=== PATIENT | male | born 1950 | race Caucasian/White ===

== ENCOUNTER 2018-12-10 09:00 | Outpatient (RCR) | payer MEDICARE, OTHER | END 2018-12-10 10:42 | disposition home or self-care (01) | LOC: MKS.ESL.PT 09:00 | DX: M25.511 Pain in right shoulder (principal) ==

== ENCOUNTER → 2019-10-06 | Outpatient (CLI) | payer MEDICARE, OTHER | LOC: COL.RAD 13:54 | DX: Z01.812 Encounter for preprocedural laboratory examination (principal); Z98.1 Arthrodesis status; M48.061 Spinal stenosis, lumbar region without neurogenic claudication; M51.16 Intervertebral disc disorders with radiculopathy, lumbar region; M43.16 Spondylolisthesis, lumbar region | CPT/HCPCS: A9585 ==

== ENCOUNTER → 2020-02-02 | Outpatient (CLI) | payer MEDICARE, OTHER | LOC: MHCPAIN 12:32 | DX: M47.817 Spondylosis without myelopathy or radiculopathy, lumbosacral region (principal); M54.5 Low back pain; M53.3 Sacrococcygeal disorders, not elsewhere classified; G89.29 Other chronic pain | CPT/HCPCS: G0463 ==

== ENCOUNTER → 2020-02-17 | Outpatient (CLI) | payer MEDICARE, OTHER | LOC: MHCPAIN 13:37 | DX: M47.817 Spondylosis without myelopathy or radiculopathy, lumbosacral region (principal); M53.3 Sacrococcygeal disorders, not elsewhere classified; M54.5 Low back pain | CPT/HCPCS: J1100; Q9967 ==

== ENCOUNTER → 2020-03-01 | Outpatient (CLI) | payer MEDICARE, OTHER | LOC: MHCPAIN 12:21 | DX: M47.817 Spondylosis without myelopathy or radiculopathy, lumbosacral region (principal); M54.5 Low back pain; M53.3 Sacrococcygeal disorders, not elsewhere classified; M54.16 Radiculopathy, lumbar region; G89.29 Other chronic pain | CPT/HCPCS: G0463 ==

== ENCOUNTER → 2020-08-08 | Outpatient (CLI) | payer MEDICARE, OTHER | LOC: COL.RAD 12:57 | DX: I67.82 Cerebral ischemia (principal); I34.0 Nonrheumatic mitral (valve) insufficiency; Z18.10 Retained metal fragments, unspecified ==

== ENCOUNTER 2021-01-10 15:23 | Emergency (ER) | payer MEDICARE, OTHER ==
[~2021-01-10] VITALS: Ht 175.3 cm; Wt 75.0 kg
[2021-01-10 15:34] VITALS: BP 143/84; TEMP 98.1
[2021-01-10 17:49] VITALS: PULSE 60
== END 2021-01-10 17:50 | disposition home or self-care (01) ==
LOC: COL.ER 15:23
DX: S01.01XA Laceration without foreign body of scalp, initial encounter (principal); W20.8XXA Other cause of strike by thrown, projected or falling object, initial encounter

== ENCOUNTER → 2021-01-18 | Outpatient (CLI) | payer MEDICARE, OTHER ==
[2021-01-18 09:26] VITALS: BP 134/72; PULSE 68; TEMP 98.2
== END ==
LOC: COL.ER 09:22
DX: Z48.02 Encounter for removal of sutures (principal)

== ENCOUNTER → 2021-03-21 | Outpatient (CLI) | payer MEDICARE, OTHER | LOC: MHCPAIN 09:10 | DX: M47.816 Spondylosis without myelopathy or radiculopathy, lumbar region (principal); M54.16 Radiculopathy, lumbar region; M53.3 Sacrococcygeal disorders, not elsewhere classified; M96.1 Postlaminectomy syndrome, not elsewhere classified | CPT/HCPCS: G0463 ==